=== PATIENT | female | born 1945 | race Caucasian/White ===

== ENCOUNTER 2017-09-10 01:50 | Day surgery (SDC) | payer MEDICARE, OTHER ==
[~2017-09-10] VITALS: Ht 165.1 cm; Wt 56.2 kg
[~2017-09-10 01:50] MED LIST: ALEN70TA43 PO; CALC600T63 PO; GLUC-304 PO; LEVO75TA73 PO; LEVOTHYROXIN; MULT1TAB54 PO; NIAC500T85 PO
[2017-09-10] MEDS ORDERED: LIDOCAINE MPF 1% 5 ML VIAL ONE (06:31)
[2017-09-10] MEDS ORDERED: PROPOFOL EMUL(*) 10MG/ML 20 ML 60 ML ONE (06:31)
[2017-09-10] MEDS ORDERED: MIDAZOLAM 2 MG/2 ML VIAL IVP ONE (07:30)
[2017-09-10] MEDS ORDERED: NORMOSOL R SOLN(*) 1000 ML BAG 1,000 ML IV PRN (07:30)
[2017-09-10] MEDS ORDERED: LIDOCAINE/SOD BICARB 8.4% SYR ID ONE (07:30)
[2017-09-10 07:42] VITALS: BP 130/74
[2017-09-10 09:27] VITALS: BP 98/69
--- NOTE | 2017-09-10 09:41 | Short(Outpt) Discharge Summary ---
Discharge Summary Reason for Hosp/Final Diag: (1) Colon cancer screening Status: Chronic Hospital Course & Plan: Colonoscopy with polypectomy x5 completed without problems. Departure Discharge to: Home, Self Care Discharge Instructions Home Meds Reported Medications Multivitamin (MULTI-VITAMIN DAILY) 1 Each Tablet, 1 EACH PO QDAY 09/03/17 Glucosam & Chondroit-Mv & Min3 (GLUCOTEN CAPLET) 1 Each Tablet, 1 EACH PO QDAY 09/03/17 Calcium Carbonate (CALCIUM) 600 Mg Tablet, 600 MG PO BID 09/03/17 Niacin (NIACIN) 500 Mg Tablet, 500 MG PO QDAY 09/03/17 Alendronate Sodium (FOSAMAX) 70 Mg Tablet, 35 MG PO QWK, TAB 08/18/17 Levothyroxine Sodium (LEVOTHYROXINE SODIUM) 75 Mcg Tablet, 75 MCG PO QDAY, TAB 08/18/17 Diet: Regular Activity: As Tolerated Special Instructions: Your colonoscopy was completed without any problems and your prep was excellent (Good Job!!). I removed 5 polyps from your colon including a large polyp. My office will call you in the next week and let you know what the polyps are and when your next colonoscopy should be (possibly as soon as 3 years if all the polyps are precancerous). SKY NAILS MD Sep 10, 2017 09:41
[2017-09-10 09:45] VITALS: BP 107/61
[2017-09-10 10:00] VITALS: BP 110/68
[2017-09-10 10:06] VITALS: BP 109/63
[2017-09-10 10:08] VITALS: BP 102/67
== END 2017-09-10 10:27 | disposition home or self-care (01) ==
LOC: OR 01:50
PROVIDERS: ATTEND Surgery
DX: Z12.11 Encounter for screening for malignant neoplasm of colon (principal); D12.5 Benign neoplasm of sigmoid colon; K57.30 Diverticulosis of large intestine without perforation or abscess without bleeding; K62.1 Rectal polyp
CPT/HCPCS: 00811; 45380; 45385; 88305; J2001; J2704

== ENCOUNTER → 2018-07-16 | Outpatient (CLI) | payer MEDICARE, OTHER ==
--- NOTE | 2018-07-16 11:21 | RADIOLOGY IMAGING REPORT ---
FACILITY: [facility] - [place] PATIENT NAME: HORTENCIA WILLETT : [id number] MR: [id number] V: [id number] EXAM DATE: ORDERING PHYSICIAN: NARESH URIBE TECHNOLOGIST: Barby Saunders PROCEDURE:BILATERAL DIGITAL SCREENING MAMMOGRAM WITH CAD ASSISTED INTERPRETATION & 3D TOMOSYNTHESIS COMPARISON:Prior mammograms 05/16/17, 04/25/16, 03/09/15, 02/24/14, 02/19/13, 11/29/11. INDICATIONS:SCREENING FINDINGS: There are scattered areas of fibroglandular density throughout the breasts. The parenchymal pattern has remained stable allowing for difference in mammographic technique & patient positioning. There is no evidence of malignant appearing mass, malignant appearing calcifications or other secondary sign of malignancy in either breast. DIAGNOSTIC CATEGORY 1--NEGATIVE. RECOMMENDATIONS: ROUTINE MAMMOGRAM AND CLINICAL EVALUATION. IMPRESSION: BIRADS 1: Negative. No significant abnormality is seen. Dictated by: Alma Quezada M.D. on 07/16/2018 at 9:42 Transcribed by: MALENA on 07/16/2018 at 9:49 Approved by: Alma Quezada M.D. on 07/16/2018 at 11:20 [facility]
== END ==
LOC: MAMO 01:12
PROVIDERS: ATTEND Obstetrics & Gynecology
DX: Z12.31 Encounter for screening mammogram for malignant neoplasm of breast (principal)
CPT/HCPCS: 77063; 77067